=== PATIENT | female | born 1980 | race Caucasian/White ===

== ENCOUNTER 2023-02-09 23:58 | Emergency (ER) | payer OTHER ==
[2023-02-10 00:08] VITALS: BP 122/82; PULSE 66; RESP 18; TEMP 98.2; BMI 23.8
[2023-02-10 01:13] LABS: BASO % 0.5 % (0-2.0); EOS % 3.6 % (0-4.5); HEMATOCRIT 38.1 % (32.4-45.2); HEMOGLOBIN 12.9 GM/dL (10.7-15.3); LYMPH % 24.4 % (8-40); MCH 29.4 pg (25.7-33.7); MEAN CELL VOLUME 86.4 fl (80-96); NEUT % 65.5 % (42.8-82.8); PLATELET COUNT 443 10^3/uL (134-434); RDW 14.1 % (11.6-15.6); WHITE BLOOD COUNT 9.5 K/mm3 (4.0-10.0)
[2023-02-10 01:32] LABS: POTASSIUM 4.2 mmol/L (3.5-5.1)
[2023-02-10 01:34] LABS: CALCIUM 9.5 mg/dL (8.5-10.1)
[2023-02-10 01:35] LABS: ALBUMIN 3.5 g/dl (3.4-5.0); BLOOD UREA NITROGEN 18.5 mg/dL (7-18); MAGNESIUM 2.2 mg/dL (1.8-2.4)
[2023-02-10 01:38] LABS: BILIRUBIN,TOTAL 0.3 mg/dL (0.2-1); CREATININE 0.9 mg/dL (0.55-1.3); PHOSPHOROUS 3.5 mg/dL (2.5-4.9); TOT PROT 7.3 g/dl (6.4-8.2)
[2023-02-10] MEDS ORDERED: ACETAMINOPHEN 500 MG TABLET (FP) PO ONE (01:54)
[2023-02-10] MEDS ORDERED: KETOROLAC TROMETHAMINE 15 MG/ML VIAL IVPUSH ONE (01:54)
[2023-02-10] MEDS ORDERED: ACETAMINOPHEN 325 MG TABLET (FP) ONE (02:01)
[2023-02-10] MEDS ORDERED: KETOROLAC TROMETHAMINE 15 MG/ML VIAL ONE (02:02)
== END 2023-02-10 04:10 | disposition home or self-care (01) ==
LOC: EDBD 23:58 → JER 23:58
PROC: 3E033NZ Introduction of Analgesics, Hypnotics, Sedatives into Peripheral Vein, Percutaneous Approach (ICD-10-PCS; principal; 2023-02-09)
DX: R07.89 Other chest pain (principal); R10.9 Unspecified abdominal pain; V87.7XXA Person injured in collision between other specified motor vehicles (traffic), initial encounter; Y93.I9 Activity, other involving external motion; Y92.098 Other place in other non-institutional residence as the place of occurrence of the external cause; Z20.822 Contact with and (suspected) exposure to COVID-19
CPT/HCPCS: 0241U-QW; 36415; 71046-TC-FY; 80053; 83690; 83735; 84100; 84484; 84703; 85025; 93005; 93010; 99285-25